=== PATIENT | male | born 1975 | race Caucasian/White ===

== ENCOUNTER 2017-02-26 02:30 | Emergency (ER) | payer MEDICARE, MEDICAID ==
[~2017-02-26] VITALS: Ht 182.9 cm; Wt 74.1 kg
[~2017-02-26 02:30] MED LIST: CEPH500C3 PO; CLON.1 PO; LORT5TAB PO; Z.0.NO CURRENT MEDS
[2017-02-26 02:37] VITALS: BP 159/115; PULSE 87; RESP 18; TEMP 98.2; O2SAT 99
[2017-02-26] MEDS ORDERED: HYDR-3533 PO (02:54)
--- NOTE | 2017-02-26 02:54 | PD ---
HPI Chief Complaint: R Shoulder Pain Time Seen by Provider: 02:52 Travel History International Travel<30 days: No Contact w/Intl Traveler<30days: No History of Present Illness HPI 41-year-old male has right shoulder pain. He has had intermittently throughout the course of his life. 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 For the past 4 days the pain has been severe. He cannot sleep. 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 He cannot take NSAIDs. He played basketball a few days ago and thinks maybe it caused his pain. No traumatic injury lately. Ice and heating packs haven't helped. PFSH Past Medical History Hypertension: Yes Past Surgical History Genitourinary Surgery: Yes (STENTS FOR BLOCKED URETERS BILATERAL) Social History Alcohol Use: Yes (2 - 3 BEERS PER NIGHT) Tobacco Use: Yes (1/2 PPD) Substance Use: No Allergies-Medications (Allergen,Severity, Reaction): Coded Allergies: No Known Allergies (Verified , 12/12/09) Reported Meds & Prescriptions Reported Meds & Active Scripts Active Lortab (Hydrocodone-Acetaminophen) 5-325 Mg Tab 1-2 Tab PO Q6H PRN Lortab 5/500 (Acetaminophen/Hydrocodone Bitart) 5 Mg/500 Mg Tab 1-2 Tab PO Q4- 6HPRN FOR PAIN Keflex (Cephalexin Monohydrate) 500 Mg Cap 500 Mg PO QID Catapres 0.1 mg (Clonidine HCl) 0.1 Mg Tab 0.1 Mg PO BID Reported No Current Meds (Miscellaneous Medication) Misc Review of Systems General / Constitutional: No: Fever Musculoskeletal: Positive: Pain Physical Exam Narrative GENERAL: 41 yo M, WNWD SKIN: Warm and dry. HEAD: Normocephalic. GASTROINTESTINAL: Abdomen soft, non-tender, nondistended. MUSCULOSKELETAL: No cyanosis, or edema. Minimal TTP R anterior shoulder. Abduction limited to about 30 degrees. 2+ DP bilaterally. Hand perinatal nurse intact bilaterally 5/5. BACK: Nontender without obvious deformity. No CVA tenderness. Data Data Last Documented VS Vital Signs Date Time Temp Pulse Resp B/P Pulse Ox O2 Delivery O2 Flow Rate FiO2 02/26/17 02:37 98.2 87 18 159/115 99 VS reviewed Orders ^ Sling (02/26/17 02:52) Acetamin-Hydrocod 325-5 Mg ([place] 5-325 (02/26/17 03:00) Mandatory Outpatient Referral (02/26/17 02:52) MDM Medical Decision Making Medical Screen Exam Complete: Yes Emergency Medical Condition: Yes Medical Record Reviewed: Yes Differential Diagnosis Rotator cuff injury, biceps tendon injury, fracture, dislocation Narrative Course Lortab here w script F/u w ortho Diagnosis Primary Impression: Shoulder pain Qualified Code: M25.511 - Chronic right shoulder pain Referrals: Gal Clayton MD 2 days Additional Instructions: You have a choice when it comes to health care, and we are glad that you chose [email or web address]. Hopefully, we have met your expectations on today's visit. You are welcome to return to [facility] at any time, as we are committed to meeting the health care needs of our community. Med/Other Pt SpecificInfo: Prescription(s) given Scripts Hydrocodone-Acetaminophen (Lortab)5-325 Mg Tab1-2 Tab PO Q6H PRN (PAIN SCALE 6 TO 10) #20 TAB Ref 0 Prov:Doyle Crawford MD 02/26/17 Disposition: 01 DISCHARGE HOME Condition: Stable Doyle Crawford MD February 26, 2017 02:54
[2017-02-26] MEDS ORDERED: ACETAMINOPHEN/HYDROcodone 325 MG/5 MG TAB PO ONE (03:00)
[2017-02-26] MEDS ORDERED: LISI30TA4 PO (03:09)
[2017-02-26] MEDS ORDERED: ASPI81TA81 PO (03:09)
[2017-02-26] MEDS ORDERED: CALC667T PO (03:09)
[2017-02-26] MEDS ORDERED: CARV6.252 PO (03:09)
[2017-02-26] MEDS ORDERED: NIFE20 PO (03:09)
[2017-02-26] MEDS ORDERED: CLON0.5T PO (03:28)
[2017-02-26 03:50] VITALS: BP 161/98
== END 2017-02-26 04:04 | disposition home or self-care (01) ==
LOC: PHED 02:30
DX: M25.511 Pain in right shoulder (principal); G89.29 Other chronic pain; I10 Essential (primary) hypertension; F17.210 Nicotine dependence, cigarettes, uncomplicated
CPT/HCPCS: 99283